=== PATIENT | female | born 1990 | race Hispanic/Latino ===

== ENCOUNTER → 2022-12-12 | Outpatient (CLI) | payer OTHER | LOC: M RAD 14:15 | PROVIDERS: ATTEND Obstetrics & Gynecology | DX: Z36.89 Encounter for other specified antenatal screening (principal); Z3A.24 24 weeks gestation of pregnancy ==

== ENCOUNTER 2023-03-24 05:03 | Inpatient (IN) | payer OTHER ==
[~2023-03-24] VITALS: Ht 170.2 cm; Wt 103.3 kg
[2023-03-24] VITALS (8 sets, daily range): BP systolic 105–144; BP diastolic 57–84
[2023-03-24] MEDS ORDERED: LACTATED RINGER'S 1000 ML IV STA (05:32)
[2023-03-24] MEDS ORDERED: TRANEXAMIC ACID INJection 1,000 MG in NS 100 ML IV PRN (05:35)
[2023-03-24] MEDS ORDERED: LIDOCAINE 1% MDV 20ML VIAL INFIL PRN (05:35)
[2023-03-24] MEDS ORDERED: OXYTOCIN DRIP 30 UNITS in IV 1 EA IV PRN ×4 (05:35)
[2023-03-24] MEDS ORDERED: METHYLERGONOVINE MALEATE 0.2MG/ML 1ML VIAL IM PRN (05:35)
[2023-03-24] MEDS ORDERED: PRENTAB9 PO (05:38)
[2023-03-24] MEDS ORDERED: ASPI81CH33 PO (05:39)
[2023-03-24] MEDS ORDERED: HOME MED LIST COMPLETE! XX SCH (05:40)
[2023-03-24 05:46] LABS: HEMATOCRIT 42.6 % (36.0-47.0); HEMOGLOBIN 14.6 g/dl (12.0-15.5); MEAN CORPUSCULAR HEMOGLOBIN 30.8 pg (27.0-33.0); MEAN CORPUSCULAR HGB CONC 34.3 g/dl (32.0-36.5); MEAN CORPUSCULAR VOLUME 89.9 fl (80.0-96.0); PLATELET COUNT, AUTOMATED 176 10^3/uL (150-450); RED BLOOD COUNT 4.74 10^6/uL (4.00-5.40); WHITE BLOOD COUNT 13.2 10^3/uL (4.0-10.0)
[2023-03-24] MEDS ORDERED: METHYLERGONOVINE MALEATE 0.2 MG TAB PO PRN (07:00)
[2023-03-24] MEDS ORDERED: RHOGAM 300MCG (1500IU) INJ IM SCH (07:00)
[2023-03-24] MEDS ORDERED: DOCUSATE SODIUM 100MG CAPSULE PO PRN (07:00)
[2023-03-24] MEDS ORDERED: DIBUCAINE 1% OINTMENT 30GM TOP PRN (07:00)
[2023-03-24] MEDS ORDERED: ANUSOL HC CREAM 30GM TOP PRN (07:00)
[2023-03-24] MEDS ORDERED: ACETAMINOPHEN TAB 650MG DOSE (2X325MG) PO PRN (07:00)
[2023-03-24] MEDS ORDERED: IBUPROFEN 600MG TAB PO PRN (07:00)
[2023-03-24] MEDS ORDERED: IBUPROFEN 800 MG TAB PO PRN (07:00)
[2023-03-24] MEDS: PRENATAL VITAMINS CHEWABLE TABLET PO SCH (07:20)
[2023-03-24] MEDS: ACETAMINOPHEN 500 MG TAB PO PRN (15:28)
[2023-03-25 06:00] VITALS: BP 130/72
[2023-03-25] MEDS: ACETAMINOPHEN 500 MG TAB PO PRN ×2 (06:07→14:08)
[2023-03-25 08:03] LABS: HEMATOCRIT 37.1 % (36.0-47.0); MEAN CORPUSCULAR HEMOGLOBIN 30.8 pg (27.0-33.0); MEAN CORPUSCULAR HGB CONC 33.2 g/dl (32.0-36.5); PLATELET COUNT, AUTOMATED 156 10^3/uL (150-450); RED BLOOD COUNT 3.99 10^6/uL (4.00-5.40); WHITE BLOOD COUNT 10.1 10^3/uL (4.0-10.0)
[2023-03-25 08:16] LABS: HEMOGLOBIN 12.3 g/dl (12.0-15.5)
[2023-03-25] MEDS: PRENATAL VITAMINS CHEWABLE TABLET PO SCH (09:51)
[2023-03-26] MEDS ORDERED: MEASLES,MUMPS,RUBELLA VACCINE INJ (MMR-II) SC.IMMUN ONE (09:00)
== END 2023-03-25 14:45 | disposition home or self-care (01) | DRG 807 ==
LOC: M LDO 05:03 → M LDI 05:18 → M OBS 08:59
PROVIDERS: ADMIT Obstetrics & Gynecology; ATTEND Obstetrics & Gynecology
PROC: 10E0XZZ Delivery of Products of Conception, External Approach (ICD-10-PCS; principal; 2023-03-24)
PROC: 0KQM0ZZ Repair Perineum Muscle, Open Approach (ICD-10-PCS; 2023-03-24)
DX: O70.1 Second degree perineal laceration during delivery (principal); Z37.0 Single live birth; Z3A.38 38 weeks gestation of pregnancy; O77.0 Labor and delivery complicated by meconium in amniotic fluid